=== PATIENT | female | born 1960 | race African-American/Black ===

== ENCOUNTER 2018-02-12 10:15 | Emergency (ER) | payer OTHER ==
[~2018-02-12] VITALS: Ht 149.9 cm; Wt 61.4 kg
[~2018-02-12 10:15] MED LIST: NOCURR; QUET100T PO
[2018-02-12] MEDS ORDERED: LORA1TAB3 PO (10:19)
[2018-02-12] MEDS ORDERED: NAPR220C15 PO (10:19)
[2018-02-12] MEDS ORDERED: RISP3 PO (10:19)
[2018-02-12] MEDS ORDERED: IBUPROFEN 600 MG TABLET PO ONE (11:15)
[2018-02-12] MEDS ORDERED: CYCLOBENZAPRINE HCL 10 MG TABLET PO ONE (11:15)
[2018-02-12 11:45] VITALS: BP 141/70
== END 2018-02-12 12:33 | disposition home or self-care (01) ==
LOC: EMS 10:16
DX: M79.18 Myalgia, other site (principal); F41.9 Anxiety disorder, unspecified; F12.90 Cannabis use, unspecified, uncomplicated; F17.210 Nicotine dependence, cigarettes, uncomplicated; Z79.899 Other long term (current) drug therapy
CPT/HCPCS: 99406

== ENCOUNTER 2018-05-26 16:23 | Emergency (ER) | payer OTHER ==
[~2018-05-26] VITALS: Ht 149.9 cm; Wt 60.0 kg
[~2018-05-26 16:23] MED LIST changes: +LORA1TAB3 PO; +NAPR220C15 PO; -NOCURR; -QUET100T PO; +RISP3 PO
[2018-05-26 16:31] VITALS: BP 101/54
== END 2018-05-26 17:35 | disposition home or self-care (01) ==
LOC: EMS 16:26
DX: K13.79 Other lesions of oral mucosa (principal); F41.9 Anxiety disorder, unspecified; F17.210 Nicotine dependence, cigarettes, uncomplicated; F12.90 Cannabis use, unspecified, uncomplicated

== ENCOUNTER 2018-08-09 17:58 | Emergency (ER) | payer OTHER | END 2018-08-09 18:26 | disposition left against medical advice (07) | LOC: EMS 18:00 | DX: M25.519 Pain in unspecified shoulder (principal); Z53.21 Procedure and treatment not carried out due to patient leaving prior to being seen by health care provider ==